=== PATIENT | female | born 1995 | race Caucasian/White ===

== ENCOUNTER 2016-12-05 10:34 | Outpatient (CLI) | payer OTHER ==
[~2016-12-05 10:34] MED LIST: HYCET1 ML PO
--- NOTE | 2016-12-05 13:03 | DIAGNOSTIC IMAGING REPORT ---
PROCEDURE: CT ABD/PELVIS WITH CONTRAST CLINICAL INDICATION: LLQ PAIN; STATUS POST LAP APPLY (2015) TECHNIQUE: 100 ml of Isovue 300 were injected intravenously and axial images were obtained of the entire abdomen and pelvis with sagittal and coronal reformations. COMPARISON: CT abdomen/pelvis 12/13/2015 FINDINGS: ABDOMEN: Lung base are clear. Heart size is normal. Liver, gallbladder, pancreas, spleen, adrenal glands, kidneys and abdominal aorta are normal. Nonspecific bowel gas pattern. PELVIS: Status post appendectomy. 2 cm involuting left ovarian cyst with minimal free fluid. Uterus and bladder are normal. No inflammatory changes. Bones are unremarkable. IMPRESSION: 1. 2 cm involuting left ovarian cyst with minimal free fluid 2. Appendectomy All CT scans at this facility use dose modulation, iterative reconstruction, and/or weight-based dosing when appropriate to reduce radiation dose to as low as reasonably achievable.
== END 2016-12-05 23:00 ==
LOC: CT SRH 10:34
DX: N83.202 Unspecified ovarian cyst, left side (principal)